=== PATIENT | male | born 1945 | race Caucasian/White ===

== ENCOUNTER 2019-01-08 02:57 | Outpatient (CLI) | payer MEDICARE, OTHER ==
[2019-01-08 13:29] LABS: Hemoglobin 15.1 g/dL (14.0-18.0); Mean Corpuscular HGB CONC 33.7 g/dL (32.0-36.0); Mean Corpuscular Hemoglobin 29.5 pg (27.0-31.0); Mean Corpuscular Volume 87.5 fL (78.0-98.0); Mean Platelet Volume 6.2 fL (7.4-10.4); Platelet Count 245 thou/uL (130-400); RBC Distribution Width 12.5 % (11.5-14.5); White Blood Cell (WBC) Count 3.9 thou/uL (4.8-10.8)
[2019-01-08 13:52] LABS: Anion Gap 12 mmol/L (10-20); BUN (Urea Nitrogen) 12 mg/dL (8.4-25.7); Calc. Creatinine Clearance 0 mL/min (70-130); Calcium 9.4 mg/dL (7.8-10.44); Carbon Dioxide 23 mmol/L (23-31); Chloride 106 mmol/L (98-107); Estimated GFR-MDRD 89; Glucose 112 mg/dL (83-110); Potassium 4.2 mmol/L (3.5-5.1); Sodium 137 mmol/L (136-145)
== END 2019-01-08 02:58 | disposition home or self-care (01) ==
LOC: LABBT 02:57
PROVIDERS: ATTEND Thoracic Surgery (Cardiothoracic Vascular Surgery)
DX: Z01.818 Encounter for other preprocedural examination (principal); I82.401 Acute embolism and thrombosis of unspecified deep veins of right lower extremity
CPT/HCPCS: 80048; 85027; 93005; 93010

== ENCOUNTER 2019-01-08 12:30 | Inpatient (IN) | payer MEDICARE, OTHER ==
[2019-01-12] MEDS ORDERED: Heparin 5,000 UNITS/ML VIAL ONE ×2 (06:36→11:29)
[2019-01-12] MEDS ORDERED: Fentanyl 100 MCG/2 ML VIAL ONE ×2 (06:37→13:07)
[2019-01-12] MEDS ORDERED: Midazolam HCl 2 mg/2 ml Vial ONE (06:37)
[2019-01-12] MEDS ORDERED: Protamine Sulfate 50 MG/5 ML VIAL ONE (06:45)
[2019-01-12] MEDS ORDERED: Heparin 10,000 UNITS/1 ML VIAL 30,000 UNITS in Sodium Chloride 0.9% 1,000 ML FS SCH (07:00)
[2019-01-12] MEDS ORDERED: Vecuronium 10 MG VIAL ONE ×2 (09:21→11:29)
[2019-01-12] MEDS ORDERED: Heparin 10,000 UNITS/1 ML VIAL ONE (10:22)
[2019-01-12] MEDS ORDERED: Heparin 10,000 UNITS/ 10 ML VIAL ONE (11:29)
[2019-01-12] MEDS ORDERED: Ondansetron PF 4 MG/2 ML Vial ONE (11:29)
[2019-01-12] MEDS ORDERED: PHENYLEPHRINE-NS 100 MCG/ML 10 ML SYRINGE ONE (11:29)
[2019-01-12] MEDS ORDERED: PROPOFOL 200 MG/20 ML VIAL ONE (11:29)
[2019-01-12] MEDS ORDERED: Dexamethasone 20 MG/5 ML VIAL ONE (11:29)
[2019-01-12] MEDS ORDERED: Calcium Chloride 1 GM/10 ML Abboject SYRINGE ONE (11:29)
[2019-01-12] MEDS ORDERED: Ketorolac Tromethamine 30 MG/ML VIAL ONE (11:29)
[2019-01-12] MEDS ORDERED: Lidocaine 1% PF 5 ML VIAL ONE (11:29)
[2019-01-12] MEDS ORDERED: Ondansetron PF 4 MG/2 ML Vial IVP PRN (12:19)
[2019-01-12] MEDS ORDERED: HYDROcodone/Acetaminophen 5/325 mg Tablet PO PRN (12:19)
[2019-01-12] MEDS ORDERED: Acetaminophen 325 MG TAB PO PRN (12:19)
[2019-01-12] MEDS ORDERED: Fentanyl 100 MCG/2 ML VIAL SLOW IVP PRN ×2 (12:19)
[2019-01-12 16:09] VITALS: BMI 27.8
--- NOTE | 2019-01-12 16:42 | OP ---
DATE OF PROCEDURE: 01/12/2019 PROCEDURES PERFORMED: Right common iliac artery endarterectomy with right common iliac artery to superficial femoral artery bypass with 8 mm Hemashield and reimplantation of profunda femoris with 6 mm [place] Propaten graft. PREOPERATIVE DIAGNOSIS: Peripheral vascular disease. POSTOPERATIVE DIAGNOSIS: Peripheral vascular disease. ANESTHESIA: General endotracheal anesthesia. INDICATIONS: The patient is a 73-year-old man with severe claudication symptoms, who got relief of symptoms with percutaneous intervention on the left side, but his right side has progressed and arteriography demonstrates occlusion of the distal external iliac with reconstitution of the [id number] SFA with faint filling of an isolated profunda. He is now taken to the operating room for revascularization. FINDINGS: Rock hard plaque almost entirely involving the iliofemoral system with the SFA becoming soft distally within the groin wound postoperatively through a palpable dorsalis pedis and posterior tibial pulses. NARRATIVE REPORT: After informed consent was obtained, the patient was taken to the operating room, placed in supine position on the operating table. After the induction of general anesthesia, the patient's torso, groins, and lower extremities were prepped and draped in sterile fashion. A longitudinal incision was made in the proximal right groin about 1/[address] from the pubic tubercle to the anterior superior iliac spine. The superficial femoral artery was identified into the course obviously small, but somewhat hard superficial inguinal lymph node was encountered within the dissection bed. It was excised and sent for permanent pathologic examination. The superficial femoral artery at that point was extremely hard and there was dense inflammatory adherences in the tissues to it. The dissection was carried distally, which required some extension of the skin incision to a point, where it became soft. The dissection was carried proximally. The origin of the profunda was identified and then dissection was carried proximal to the inguinal ligament. No soft part of the iliofemoral system was encountered to that point and it became clear that proximal control could not be achieved from the groin incision with conventional clamping and that the patent portion of the vessel could not be reached from that incision. Slightly curvilinear incision incorporating a previous inguinal herniorrhaphy incision was made. The external and internal obliques were incised and mobilized in the retroperitoneal spaces explored sweeping the peritoneal contents medially. The iliac system was identified and although there were some spotty areas, where the vessel was soft enough to appreciate a pulse in the external iliac. It was all severely diseased even going up to the level of the common iliac bifurcation. The common iliac and its bifurcation were isolated and controlled and the retroperitoneal tunnelled down to the groin was completed. The patient was heparinized and after adequate circulation time of heparin, vascular clamps were applied to the external and internal iliacs and then to the common iliac. A longitudinal arteriotomy was made in the proximal external iliac at the soft spot anteriorly and the incision was extended with scissors and scalpel. A Sarot clamp was used to a crush clamp and extract and then perform an eversion endarterectomy debriding sufficient plaque from the distal external iliac to allow for reasonably hemostatic clamping. An 8 mm Hemashield graft was beveled and anastomosed to that arteriotomy in end-to-side with running Prolene and was flushed and the vascular control moved from the skull valley vessels to the graft. The graft was oriented and passed to the groin incision and flushed and then a segment of soft SFA in the distal aspect of the wound was opened between vascular clamps and the graft was anastomosed end-to-side there. The profunda was exposed and isolated requiring division of profunda vein branches and the branches were controlled with vascular clamps and a longitudinal arteriotomy was made in the profunda. A 6 mm [place]-Walt graft was beveled and anastomosed there end-to-side. There was good back bleeding from both branches of the profunda and modest inflow bleeding from the origin of the profunda. That graft was clamped and a segment of the Hemashield graft was isolated, a slightly elliptical graftotomy was made in the Hemashield graft and the Scre[place]-Walt graft was anastomosed to it end-to-side. When the vascular controls were released, the suture lines were inspected for hemostasis and protamine was administered. The lower leg had been explored distal to the patient's previous vein harvest for his coronary artery bypass procedure in an attempt to use greater saphenous vein for re-implanting the profunda, but no usable vein was identified. The only vein in the saphenous distribution was very small and thin walled. The heparin was reversed. The wounds were irrigated and inspected for hemostasis. The right lower quadrant wound was closed using #1 PDS suture for the obliques and 2-0 Vicryl subcutaneous and 4-0 Vicryl subcuticular suture. The groin and lower leg wounds were closed in layers of subcutaneous and subcuticular Vicryl. Dermabond and dressings were applied and the patient was taken to the recovery area in stable condition with palpable dorsalis pedis and posterior tibial pulses. Job ID: [id number]
[2019-01-12] MEDS: Sodium Chloride 0.9% 1,000 ML IV SCH (18:19)
[2019-01-12] MEDS: HYDROcodone/Acetaminophen 5/325 mg Tablet PO PRN (20:23)
[2019-01-12] MEDS: Atorvastatin Calcium 20 MG TAB PO SCH (20:26)
[2019-01-13] MEDS: Sodium Chloride 0.9% 1,000 ML IV SCH ×2 (01:05→09:02)
[2019-01-13 05:47] LABS: #Lymphocytes 0.9 thou/uL (1.20-3.40); #Monocytes 0.7 thou/uL (0.11-0.59); #Neutrophils 5.7 thou/uL (1.40-6.50); %Basophils 0.2 % (0.0-1.0); %Eosinophils 0.5 % (0.0-10.0); %Lymphocytes 11.8 % (21.0-51.0); %Monocytes 9.4 % (0.0-10.0); %Neutrophils 78.1 % (42.0-75.0); Hemoglobin 13.1 g/dL (14.0-18.0); Mean Corpuscular HGB CONC 34.2 g/dL (32.0-36.0); Mean Corpuscular Hemoglobin 30.4 pg (27.0-31.0); Mean Corpuscular Volume 89.1 fL (78.0-98.0); Mean Platelet Volume 6.4 fL (7.4-10.4); Platelet Count 172 thou/uL (130-400); RBC Distribution Width 12.5 % (11.5-14.5); Red Blood Cell (RBC) Count 4.29 mill/uL (4.70-6.10); White Blood Cell (WBC) Count 7.3 thou/uL (4.8-10.8)
[2019-01-13 06:07] LABS: Anion Gap 10 mmol/L (10-20); BUN (Urea Nitrogen) 15 mg/dL (8.4-25.7); Calc. Creatinine Clearance 110 mL/min (70-130); Calcium 8.4 mg/dL (7.8-10.44); Carbon Dioxide 25 mmol/L (23-31); Chloride 107 mmol/L (98-107); Estimated GFR-MDRD Greater than 90; Glucose 120 mg/dL (83-110); Potassium 4.2 mmol/L (3.5-5.1); Sodium 138 mmol/L (136-145)
[2019-01-13] MEDS: Metoprolol Tartrate 25 MG TAB PO SCH (08:32)
[2019-01-13] MEDS: Vit A,C & E/Lutein/Minerals Tablet PO SCH (08:32)
[2019-01-13] MEDS: Ubidecarenone 50 MG CAP PO SCH (08:33)
[2019-01-13] MEDS: Clopidogrel Bisulfate 75 MG TAB PO SCH (08:33)
[2019-01-13] MEDS: Cholecalciferol (Vitamin D3) 400 UNITS TAB PO SCH (08:52)
[2019-01-13] MEDS: Naproxen 500 MG TAB PO SCH (08:52)
[2019-01-13] MEDS ORDERED: [UNRECOGNIZED DRUG - OTHER] PO SCH (09:00)
[2019-01-13] MEDS ORDERED: PUMPKIN PO SCH (09:00)
[2019-01-13] MEDS ORDERED: Aspirin 81 mg Enteric Coated Tablet PO SCH (09:00)
[2019-01-13] MEDS ORDERED: TURMERIC PO SCH (09:00)
[2019-01-13] MEDS ORDERED: Levothyroxine Sodium 75 MCG TAB PO SCH (09:00)
[2019-01-13] MEDS ORDERED: NETTLE PO SCH (09:00)
[2019-01-13] MEDS ORDERED: [UNRECOGNIZED DRUG - OTHER] PO SCH (09:00)
[2019-01-13] MEDS: HYDROcodone/Acetaminophen 5/325 mg Tablet PO PRN ×3 (09:00→18:10)
[2019-01-13] MEDS: Aspirin Chewable 81 MG TAB PO SCH (09:01)
[2019-01-13] MEDS: Atorvastatin Calcium 20 MG TAB PO SCH (21:17)
[2019-01-14] MEDS ORDERED: Levothyroxine Sodium 75 MCG TAB PO SCH (06:00)
[2019-01-14] MEDS: Vit A,C & E/Lutein/Minerals Tablet PO SCH (10:10)
[2019-01-14] MEDS: Metoprolol Tartrate 25 MG TAB PO SCH (10:10)
[2019-01-14] MEDS: Naproxen 500 MG TAB PO SCH (10:10)
[2019-01-14] MEDS: Ubidecarenone 50 MG CAP PO SCH (10:10)
[2019-01-14] MEDS: Cholecalciferol (Vitamin D3) 400 UNITS TAB PO SCH (10:11)
[2019-01-14] MEDS: Clopidogrel Bisulfate 75 MG TAB PO SCH (10:11)
[2019-01-14] MEDS: Aspirin Chewable 81 MG TAB PO SCH (10:12)
[2019-01-14 12:01] VITALS: BP 130/79; TEMP 97.7
[2019-01-14] MEDS: HYDROcodone/Acetaminophen 5/325 mg Tablet PO PRN (12:11)
--- NOTE | 2019-01-14 14:30 | DIS ---
DATE OF ADMISSION: 01/12/2019 DATE OF DISCHARGE: 01/14/2019 PRINCIPAL DIAGNOSIS: Peripheral vascular disease. PROCEDURES PERFORMED: Right common iliac artery endarterectomy with 8-mm HemaShield common iliac to superficial femoral artery bypass with reimplantation of profunda femoris with 6 mm [place]Walt. HISTORY OF PRESENT ILLNESS AND HOSPITAL COURSE: The patient is a 73-year-old man, who has already had vein harvested from his right lower extremity for coronary artery bypass grafting. He has developed severe claudication and had a relatively short segment occlusion from the distal external iliac artery to the SFA in the upper thigh. Upon exploration, however, he was found to have extensive calcification going well up into the pelvis and rather than simply revascularizing with an endarterectomy in order to reestablish direct flow into the distal thigh and below the knee as well as preserve the profunda. The graft was taken from the distal common iliac artery down to the mid SFA low in the wound. This required endarterectomy of the common iliac artery and reimplantation of the profunda using a small [place]Walt graft. The patient did very well postoperatively, was observed overnight in the intensive care unit and transferred to the [facility] the following day. Today on postoperative day 2, he has good pain control and is ambulating well. He will be discharged home now to resume his home medications. I will plan on seeing him in the office in followup in around 2 weeks. Job ID: [id number]
== END 2019-01-14 12:20 | disposition home or self-care (01) | DRG 272 ==
LOC: SURG A 01-12 05:59 → CCU 01-12 15:18 → SURG B 01-13 13:24
PROVIDERS: ADMIT Thoracic Surgery (Cardiothoracic Vascular Surgery); ATTEND Thoracic Surgery (Cardiothoracic Vascular Surgery)
PROC: 041C0JH Bypass Right Common Iliac Artery to Right Femoral Artery with Synthetic Substitute, Open Approach (ICD-10-PCS; principal; 2019-01-12)
DX: I70.211 Atherosclerosis of native arteries of extremities with intermittent claudication, right leg (principal); I25.10 Atherosclerotic heart disease of native coronary artery without angina pectoris; I10 Essential (primary) hypertension; E78.5 Hyperlipidemia, unspecified; G47.00 Insomnia, unspecified; E03.9 Hypothyroidism, unspecified; Z90.89 Acquired absence of other organs; Z95.1 Presence of aortocoronary bypass graft; Z88.5 Allergy status to narcotic agent
CPT/HCPCS: 36415; 36416; 80048; 85025; 88305; J0690; J1100; J1642; J1644; J1885; J2001; J2250; J2405; J2704; J2720; J3010; J7050

== ENCOUNTER 2021-08-22 11:31 | Outpatient (CLI) | payer MEDICARE, OTHER | END 2021-08-22 11:32 | disposition home or self-care (01) | LOC: CT 11:31 | PROVIDERS: ATTEND Thoracic Surgery (Cardiothoracic Vascular Surgery) | DX: I70.213 Atherosclerosis of native arteries of extremities with intermittent claudication, bilateral legs (principal); I21.11 ST elevation (STEMI) myocardial infarction involving right coronary artery; K76.9 Liver disease, unspecified; Z95.820 Peripheral vascular angioplasty status with implants and grafts | CPT/HCPCS: 75635; 82565 ==